=== PATIENT | female | born 1950 | race Caucasian/White ===

== ENCOUNTER 2017-02-26 08:16 | Emergency (ER) | payer BC ==
[~2017-02-26] VITALS: Ht 157.5 cm; Wt 50.0 kg
[2017-02-26 08:18] VITALS: BP 151/80; PULSE 100; RESP 20; TEMP 97.4; O2SAT 98
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
[2017-02-26] MEDS ORDERED: PROPARACAINE HCL 0.5% OPHT SOLN 15 ML BTL EACH EYE ONE (08:45)
[2017-02-26] MEDS ORDERED: BRIM0.2S4 LEFT EYE (09:28)
[2017-02-26] MEDS ORDERED: LATA0.002 LEFT EYE (09:28)
[2017-02-26] MEDS ORDERED: DORZ2SOL15 LEFT EYE (09:28)
[2017-02-27] MEDS ORDERED: PRED1SUS6 LEFT EYE (10:42)
== END 2017-02-26 09:48 | disposition home or self-care (01) ==
LOC: NEPD 08:16
DX: H40.9 Unspecified glaucoma (principal)
CPT/HCPCS: 99284